=== PATIENT | male | born 1945 | race Caucasian/White ===

== ENCOUNTER 2016-10-28 10:51 | Emergency (ER) | payer OTHER ==
[2016-10-28 12:16] LABS: BASOPHIL 0.3 % (0-2); EOSINOPHIL 5.3 % (0-7); HCT 32.8 % (42.0-52.0); HGB 11.1 g/dl (13.2-18.0); LYMPHOCYTE 21.3 % (15-48); MCH 29.4 pg (25.0-31.0); MCHC 33.8 g/dL (32.0-36.0); MONOCYTE 10.5 % (0-12); NEUTROPHIL 62.6 % (41-80); PLT 199 K/uL (150-400); RBC 3.77 M/uL (4.70-6.00); RDW 15.3 % (11.5-14.0); WBC 7.4 K/uL (4.0-10.5)
[2016-10-28 12:27] LABS: TROPONIN T < 0.010 ng/mL
[2016-10-28 12:29] LABS: ALBUMIN 4.2 g/dL (3.4-4.8); BILIRUBIN - TOTAL 0.8 mg/dL (0.1-1.0); CREATININE 1.1 mg/dL (0.7-1.2); GLOBULIN (CALCULATION) 3.2 g/dL (2.2-4.2); POTASSIUM 4.1 mmol/L (3.5-5.1); PRO-BNP 572 pg/mL (0-125); TOTAL PROTEIN 7.4 g/dL (6.4-8.3)
== END 2016-10-28 13:52 | disposition home or self-care (01) ==
LOC: FER 10:51
PROVIDERS: Emergency Medicine
DX: R05 Cough (principal); R06.02 Shortness of breath; I25.10 Atherosclerotic heart disease of native coronary artery without angina pectoris; I48.91 Unspecified atrial fibrillation
CPT/HCPCS: 36415; 36600; 71020; 80053; 82803; 83880; 84484; 85025; 93005